=== PATIENT | male | born 1990 | race Caucasian/White ===

== ENCOUNTER 2021-05-13 18:05 | Emergency (ER) | payer OTHER ==
[~2021-05-13] VITALS: Ht 175.3 cm; Wt 104.3 kg
[2021-05-13] MEDS ORDERED: OSEL75CA PO (21:22)
== END 2021-05-13 22:10 | disposition home or self-care (01) ==
LOC: ER 18:05
DX: J10.1 Influenza due to other identified influenza virus with other respiratory manifestations (principal); Z20.822 Contact with and (suspected) exposure to COVID-19